=== PATIENT | male | born 1955 | race Caucasian/White ===

== ENCOUNTER 2019-07-07 19:34 | Emergency (ER) | payer MEDICAID, MEDICARE ==
[~2019-07-07] VITALS: Ht 170.2 cm; Wt 92.2 kg
[2019-07-07 19:39] VITALS: BP 170/96
[2019-07-07 20:56] LABS: RAPID INFLUENZA A Negative (Negative); RAPID INFLUENZA B Negative (Negative)
== END 2019-07-07 21:43 | disposition home or self-care (01) ==
LOC: ED 21:15
DX: J02.8 Acute pharyngitis due to other specified organisms (principal); B97.89 Other viral agents as the cause of diseases classified elsewhere; I10 Essential (primary) hypertension
CPT/HCPCS: 71046; 87400; 87486; 87581; 87633; 87798; 99284

== ENCOUNTER → 2020-11-16 | Outpatient (CLI) | payer MEDICARE ==
[~2020-11-16] MED LIST: REGADENOSON 0.4 MG/5 ML SYRINGE ONE
== END | disposition home or self-care (01) ==
LOC: CVU 09:58
PROVIDERS: ATTEND Internal Medicine Cardiovascular Disease
DX: I08.0 Rheumatic disorders of both mitral and aortic valves (principal); I10 Essential (primary) hypertension; I65.23 Occlusion and stenosis of bilateral carotid arteries
CPT/HCPCS: 93306; 93356; 93880; J2785

== ENCOUNTER 2020-12-07 09:58 | Day surgery (SDC) | payer MEDICARE ==
[~2020-12-07] VITALS: Ht 170.2 cm; Wt 97.7 kg
[2020-12-07] MEDS ORDERED: ACET650S21 PO (10:23)
[2020-12-07] MEDS ORDERED: LOSA100T14 PO (10:23)
[2020-12-07] MEDS ORDERED: SODIUM CHLORIDE 0.9% 1,000 ML IV SCH ×2 (10:30→12:30)
[2020-12-07 10:34] VITALS: BP 138/91
[2020-12-07 10:47] LABS: BASOPHILS % (AUTO) 0 % (0-1); EOSINOPHILS % (AUTO) 3 % (1-7); LYMPHOCYTES % (AUTO) 29 % (22-44); MEAN CORPUSCULAR HEMOGLOBIN 29.1 pg (27.5-34.5); MEAN PLATELET VOLUME 8.3 fL (7.4-10.4); MONOCYTES % (AUTO) 13 % (2-9); NEUTROPHILS % (AUTO) 54 % (42-75); PLATELET COUNT 213 x10^3/uL (130-400); RED BLOOD COUNT 5.54 x10^6/uL (4.38-5.82); RED CELL DISTRIBUTION WIDTH 14.1 % (9.4-14.8)
[2020-12-07 10:57] LABS: ANION GAP 6 mmol/L (5-15); CALCIUM 8.2 mg/dL (8.5-10.1); CHLORIDE 109 mmol/L (98-107); CREATININE 0.71 mg/dL (0.7-1.3)
[2020-12-07] MEDS ORDERED: VERAPAMIL 2.5 MG/ML, 2ML ONE (11:35)
[2020-12-07] MEDS ORDERED: HEPARIN 1,000 UNITS/ML, 10ML ONE (11:35)
[2020-12-07] MEDS ORDERED: BIVALIRUDIN 250 MG ONE (11:35)
[2020-12-07] MEDS ORDERED: TICAGRELOR 90 MG TABLET ONE (11:35)
[2020-12-07] MEDS ORDERED: MIDAZOLAM 1 MG/ML, 5ML ONE (11:35)
[2020-12-07] MEDS ORDERED: FENTANYL PF 100 MCG/2ML ONE (11:35)
[2020-12-07] MEDS ORDERED: LIDOCAINE-MPF 1%, 5ML ONE (11:35)
[2020-12-07] MEDS ORDERED: NITROGLYCERIN 5 MG/ML, 10ML ONE (11:36)
== END 2020-12-07 14:55 | disposition home or self-care (01) ==
LOC: CACL 09:58
PROVIDERS: ATTEND Internal Medicine Cardiovascular Disease
DX: Z01.810 Encounter for preprocedural cardiovascular examination (principal); I35.0 Nonrheumatic aortic (valve) stenosis; I20.9 Angina pectoris, unspecified; I77.810 Thoracic aortic ectasia; I10 Essential (primary) hypertension; E78.00 Pure hypercholesterolemia, unspecified; M06.9 Rheumatoid arthritis, unspecified; E66.9 Obesity, unspecified; Z68.34 Body mass index [BMI] 34.0-34.9, adult; Z79.899 Other long term (current) drug therapy; Z82.49 Family history of ischemic heart disease and other diseases of the circulatory system
CPT/HCPCS: 36415; 80048; 85025; 93454; 99156; C1769; C1894; J1644; J2250; J3010; Q9967; J0583

== ENCOUNTER → 2020-12-21 | Outpatient (CLI) | payer MEDICARE ==
[~2020-12-21] MED LIST changes: +ACET650S21 PO; +LOSA100T14 PO; -REGADENOSON 0.4 MG/5 ML SYRINGE ONE; +VISIPAQUE 320 MG/ML, 150ML BOTTLE ONE
== END | disposition home or self-care (01) ==
LOC: RAD 11:21
PROVIDERS: ATTEND Internal Medicine Cardiovascular Disease
DX: I25.10 Atherosclerotic heart disease of native coronary artery without angina pectoris (principal); I35.0 Nonrheumatic aortic (valve) stenosis; R06.02 Shortness of breath; I77.810 Thoracic aortic ectasia; I70.0 Atherosclerosis of aorta
CPT/HCPCS: 71275; 74174; Q9967